=== PATIENT | female | born 1995 | race Caucasian/White ===

== ENCOUNTER → 2017-06-03 | Outpatient (CLI) | payer MEDICAID ==
--- NOTE | 2017-06-03 10:13 | US ---
EXAMINATION TYPE: US transvaginal DATE OF EXAM: 06/03/2017 COMPARISON: NONE CLINICAL HISTORY: 21-year-old female N92.1 irregular intramenstrual bleeding. Recently started control due to heavy cycles with break through bleeding in between cycles TECHNIQUE: Multiple transvaginal sonographic images of the pelvis are obtained. Date of LMP: April 20. None in May. FINDINGS: Uterus: Anteverted measuring 8.4 x 5.1 x 4.2 cm Endometrial Stripe: 1.8 cm, thickened. Right Ovary: 3.4 x 2.2 x 2.7 cm with follicular change. Left Ovary: 2.9 x 2.1 x 1.9 cm No evidence of adnexal abnormality. Trace cul-de-sac free fluid. IMPRESSION: 1. Excessive endometrial thickening at 1.8 cm. Follow-up in 6-8 weeks to ensure resolution. 2. Trace cul-de-sac free fluid likely physiologic.
== END | disposition home or self-care (01) ==
LOC: RADUSWWP 09:23
PROVIDERS: ATTEND Family Medicine
DX: R93.8 Abnormal findings on diagnostic imaging of other specified body structures (principal)
CPT/HCPCS: 76830

== ENCOUNTER → 2017-08-19 | Outpatient (CLI) | payer MEDICAID ==
--- NOTE | 2017-08-19 10:44 | US ---
EXAMINATION TYPE: US transvaginal DATE OF EXAM: 08/19/2017 COMPARISON: US 05/2017 CLINICAL HISTORY: N85.00 Thickened endometrium. Patient started taking control after previous u ltrasound to try and regulate cycles TECHNIQUE: Transvaginal (TV) Date of LMP: 08/08/2017 EXAM MEASUREMENTS: Uterus: 7.3 x 3.9 x 4.7 cm Endometrial Stripe: 1.0 cm Right Ovary: 3.2 x 2.8 x 2.9 cm Left Ovary: 3.5 x 2.9 x 2.8 cm 1. Uterus: Anteverted 2. Endometrium: wnl 3. Right Ovary: Multiple small follicles visualized 4. Left Ovary: Cystic area visualized measuring 2.5 x 2.1 x 2.8 cm 5. Bilateral Adnexa: wnl 6. Posterior cul-de-sac: wnl IMPRESSION: 1. Decrease in endometrial thickness now measuring up to 1.0 cm previously measuring 1.8 cm. This has a trilaminar appearance and likely related to the phase of menses. 2. Dominant left ovarian follicle approaching size criteria of a cyst, likely physiologic.
== END | disposition home or self-care (01) ==
LOC: RADUSWWP 09:28
PROVIDERS: ATTEND Family Medicine
DX: R93.8 Abnormal findings on diagnostic imaging of other specified body structures (principal); N85.00 Endometrial hyperplasia, unspecified
CPT/HCPCS: 76830